=== PATIENT | female | born 1975 | race African-American/Black ===

== ENCOUNTER 2021-04-22 13:11 | Emergency (ER) | payer OTHER ==
[~2021-04-22] VITALS: Ht 167.6 cm; Wt 83.5 kg
[2021-04-22 13:32] VITALS: BP 129/76
[2021-04-22] MEDS ORDERED: KETOROLAC 30 MG/ML VIAL IM ONE (13:50)
--- NOTE | 2021-04-22 14:05 | NUR ---
PT TAKEN TO BED 4 AMBULATORY.
--- NOTE | 2021-04-22 14:35 | NUR ---
45/F presents to ED with c/o lower back pain. Patient states she injured her lower back attempting to "hold up her garage" this morning. Patient states pain has been constant since, stating a 7/10 aching pain that worsens with movement. Denies taking anything at home for pain, denies dysuria, hematuria. Patient able to ambulate with steady gait without assistance.
[2021-04-22] MEDS ORDERED: NAPR-54 PO (14:38)
[2021-04-22] MEDS ORDERED: LIDO1ADH47 TP (14:38)
[2021-04-22] MEDS ORDERED: METH-1681 PO (14:38)
[2021-04-22 14:54] VITALS: BP 129/76
--- NOTE | 2021-04-22 14:54 | NUR ---
Patient discharged with v/s stable. Written and verbal after care instructions given and explained. Patient alert, oriented and verbalized understanding of instructions. Ambulatory with steady gait. All questions addressed prior to discharge. ID band removed. Patient advised to follow up with PMD. Rx of Lidocaine pain relief, robaxin and naprosyn given. Patient educated on indication of medication including possible reaction and side effects. Opportunity to ask questions provided and answered.
== END 2021-04-22 14:54 | disposition home or self-care (01) ==
LOC: MED 13:11
DX: S39.012A Strain of muscle, fascia and tendon of lower back, initial encounter (principal); Z88.0 Allergy status to penicillin; Z88.5 Allergy status to narcotic agent; W19.XXXA Unspecified fall, initial encounter; Y93.89 Activity, other specified; Y92.89 Other specified places as the place of occurrence of the external cause; Y99.8 Other external cause status
CPT/HCPCS: 81002; 81025; 96372; 99283; J1885